=== PATIENT | male | born 1990 | race Caucasian/White ===

== ENCOUNTER 2022-11-01 04:38 | Day surgery (SDC) | payer BC, OTHER ==
[2022-10-29 09:18] VITALS: BMI 33.0
[2022-11-01] MEDS ORDERED: LIDOCAINE HCL 1%, 10 MG/ML (20ML VIAL) ONE (11:15)
[2022-11-01] MEDS ORDERED: LIDOCAINE HCL 1%, 10 MG/ML (20ML VIAL) NR ONE (13:12)
[2022-11-01] MEDS ORDERED: ceFAZolin SODIUM 1 GM VIAL IVPB ONE ×2 (13:13→13:42)
[2022-11-01] MEDS ORDERED: BUPIVACAINE HCL/PF 0.5% (5MG/ML) 10 ML VIAL IJ ONE ×3 (13:13→13:50)
[2022-11-01] MEDS ORDERED: MIDAZOLAM HCL 2 MG/2 ML SINGLE DOSE VIAL ONE (13:21)
[2022-11-01] MEDS ORDERED: PROPOFOL 40 ML ONE (13:21)
[2022-11-01] MEDS ORDERED: LIDOCAINE HCL 2% (20ML MULTI-DOSE VIAL) ONE (13:40)
[2022-11-01] MEDS ORDERED: LIDOCAINE HCL 2% (50ML VIAL) NR ONE ×2 (13:50)
[2022-11-01] MEDS ORDERED: ONDANSETRON 4 MG/2 ML VIAL IVPUSH PRN (14:38)
[2022-11-01] MEDS ORDERED: oxyCODONE HCL 5 MG TABLET PO PRN (14:38)
[2022-11-01 15:41] VITALS: RESP 18
[2022-11-01 16:20] VITALS: BP 136/84; PULSE 74; TEMP 97.8
== END 2022-11-01 16:40 | disposition home or self-care (01) ==
LOC: JASU-SURG 04:38
PROVIDERS: ATTEND Urology
PROC: 0VTQ0ZZ Resection of Bilateral Vas Deferens, Open Approach (ICD-10-PCS; principal; 2022-11-01 13:00)
DX: Z30.2 Encounter for sterilization (principal)
CPT/HCPCS: 88302-TC; 94760